=== PATIENT | male | born 1965 | race Caucasian/White ===

== ENCOUNTER 2016-09-18 09:46 | Emergency (ER) | payer SELFPAY ==
[~2016-09-18] VITALS: Ht 182.9 cm; Wt 88.5 kg
[2016-09-18] MEDS ORDERED: IV NS 0.9% 1,000 ML ONE (09:53)
[2016-09-18] MEDS ORDERED: IV SET PRIMARY PUMP SET 1 EA INFUS.SET MC ONE (09:53)
[2016-09-18] MEDS ORDERED: LORAZEPAM INJ 2 MG/ML VIAL ONE ×2 (09:54→11:47)
[2016-09-18] MEDS ORDERED: IV NS 0.9% 1,000 ML BAG IV ONE (10:00)
[2016-09-18] MEDS ORDERED: LORAZEPAM INJ 2 MG/ML VIAL IM ONE (10:00)
--- NOTE | 2016-09-18 10:00 | NUR ---
IV ACCESSED TO RIGHT HAND.
[2016-09-18 10:01] LABS: BASOPHILS # (AUTO) 0.3 /CMM (0.0-0.2); BASOPHILS % (AUTO) 2.1 % (0.0-2.0); EOSINOPHILS # (AUTO) 0.4 /CMM (0.0-0.7); EOSINOPHILS % (AUTO) 2.5 % (0.0-6.0); HEMATOCRIT 43 % (39-51); HEMOGLOBIN 13.9 g/dL (13.5-17.5); LYMPHOCYTES # (AUTO) 4.2 /CMM (0.8-4.8); LYMPHOCYTES % (AUTO) 29.3 % (20.0-44.0); MEAN CORPUSCULAR HEMOGLOBIN 28 PG (26.0-33.0); MEAN CORPUSCULAR HGB CONC 32 g/dl (31.0-36.0); MEAN CORPUSCULAR VOLUME 87 fL (80-96); MONOCYTES % (AUTO) 6.9 % (2.0-12.0); NEUTROPHILS # (AUTO) 8.5 /CMM (1.8-8.9); NEUTROPHILS % (AUTO) 59.2 % (43.0-81.0); PLATELET COUNT (AUTO) 490 /CMM (150-450); RDW COEFFICIENT OF VARIATION 12.7 (11.5-15.0); RED BLOOD CELL COUNT(AUTO) 4.95 MIL/uL (4.5-6.0); WHITE BLOOD COUNT (AUTO) 14.4 K/uL (4.3-11.0)
--- NOTE | 2016-09-18 10:03 | NUR ---
GLADYS FROM HOME DT BIZZARE BEHAVIOR AFTER AFTER METHAMPHETAMINE USE. PATIENT IS AWAKE, HOWEVER CONFUSED. APPEARS IN NO APPARENT DISTRESS, RESPIRATION EVEN AND UNALBORED. NO SOB NOTED. VSS. PATIENT WAS ASSISTED BY [employer]LL
--- NOTE | 2016-09-18 10:05 | NUR ---
MEDICATED PATIENT ORDERED
[2016-09-18 10:10] LABS: ALCOHOL, BLOOD < 3 mg/dL (0-0); CALCIUM, SERUM 8.7 mg/dL (8.5-10.1); CARBON DIOXIDE 15 mmol/L (21-32); CHLORIDE 101 mmol/L (98-107); CREATININE 1.9 mg/dL (0.6-1.3); GLUCOSE 259 mg/dL (74-106); POTASSIUM 3.8 mmol/L (3.5-5.1); SODIUM SERUM 139 mmol/L (136-145); UREA NITROGEN, BLOOD 15 mg/dL (7-18)
--- NOTE | 2016-09-18 10:28 | NUR ---
PATIENT REFUSED IN AND OUT CATH FOR URINE SAMPLE. PROVIDED URINAL. MD VIRAMONTES MADE AWARE
[2016-09-18] MEDS ORDERED: LORAZEPAM INJ 2 MG/ML VIAL IV ONE (11:30)
--- NOTE | 2016-09-18 13:45 | NUR ---
Patient was seen by this SW per the request of Security Threat Analyst Opal Lyn. Evaluation was called due to friends concerns that pt. was behaving bizarrely and expressing suicidal ideation. Patient is at this time denying any wish to kill himself and is not expressing any suicidal plan. Patient is alert and oriented x4 and also denies auditory/visual hallucinations. Per the patient, he was intoxicated when he texted his friend (Yamilet- [phone]) saying that "it is easier to than to get sober." Patient denied wanting to to SW and stated he enjoys using cocaine and is not ready to stop. Per patient's friend, he was taking psychiatric medications however patient reported not taking them since May 2016, as this is when he relapsed. Patient was given referral to [facility] ([address] [place] [address]; [phone]) should he need crisis intervention and informed him that hours are from Thursday-Thursday 8AM-10PM and Thursday-Thursday 9AM-5:30PM. Patient was also given referrals to [facility] ([phone]: [address] [place] [address]), and [facility] ([address] [place] [address] ([phone]). Charge nurse Salvatore Hyatt was notified as well as Anastacia HICKS and she placed the referrals in the patient's discharge packet. Suicide Risk Assessment was completed and patient continues to express no suicidality.
--- NOTE | 2016-09-18 15:51 | NUR ---
IV removed. Catheter intact and site benign. Pressure and 4x4 applied to site. No bleeding noted.Patient discharged to home in stable condition. Written and verbal after care instructions given. Patient verbalizes understanding of instruction.
[2016-09-18 16:02] VITALS: BP 138/80
== END 2016-09-18 15:52 | disposition home or self-care (01) ==
LOC: ER 09:49
DX: S39.91XA Unspecified injury of abdomen, initial encounter (principal); T44.901A Poisoning by unspecified drugs primarily affecting the autonomic nervous system, accidental (unintentional), initial encounter; R45.851 Suicidal ideations; F17.200 Nicotine dependence, unspecified, uncomplicated; W86.8XXA Exposure to other electric current, initial encounter; Y93.89 Activity, other specified; Y92.89 Other specified places as the place of occurrence of the external cause; Y99.9 Unspecified external cause status
CPT/HCPCS: 36415; 80048; 85025; 93005; 96361; 96372; 96374; 99285; A4606; G0480; J2060 ×2; J7030; Z7610